=== PATIENT | male | born 1960 | race African-American/Black ===

== ENCOUNTER 2021-05-31 15:57 | Emergency (ER) | payer MEDICAID ==
[~2021-05-31] VITALS: Ht 180.3 cm; Wt 87.0 kg
[2021-05-31] MEDS ORDERED: KETOROLAC 30MG/ML VIAL IM ONE (16:30)
[2021-05-31] MEDS ORDERED: CYCLOBENZAPRINE 10MG TABLET PO ONE (16:30)
[2021-05-31] MEDS ORDERED: CYCL10TA7 MT (17:32)
[2021-05-31] MEDS ORDERED: NAPR-1176 MT (17:32)
[2021-05-31 17:46] VITALS: BP 124/86
== END 2021-05-31 18:05 | disposition home or self-care (01) ==
LOC: ER 15:57
DX: M54.50 Low back pain, unspecified (principal); I10 Essential (primary) hypertension
CPT/HCPCS: 96372; 99283; J1885